=== PATIENT | female | born 1980 | race Caucasian/White ===

== ENCOUNTER 2017-11-28 16:29 | Emergency (ER) | payer OTHER ==
[2017-11-28] MEDS ORDERED: Sodium Chloride 0.9% 1000 ML 1,000 ML IV STA ×2 (17:44→19:04)
[2017-11-28] MEDS ORDERED: Zofran 4 MG/2 ML VIAL IV ONE (17:45)
--- NOTE | 2017-11-28 17:55 | ERPHSYRPT ---
- History of Present Illness Time Seen by Provider: 11/28/17 17:30 Source: patient Patient Subjective Stated Complaint: PT REPORTS VOMITING TODAY ET YESTERDAY- STATES THAT SHE IS 7 WKS PREGANT ET IT IS NOT NORMAL FOR HER TO VOMIT-STATES THAT SHE HAD A MISCARRIAGE LAST YEAR Triage Nursing Assessment: PT UPSET YELLING CUSSING ET SCREAMING UPON ARRIVAL TO ED ROOM-AMBULATORY WITH NO DIFFICULTY-RESP EASY ET NONLABORED Physician History: PATIENT IS A -5, PARA-2, -2. 7 WEEKS GESTATION, HAD ULTRASOUND 2 WEEKS AGO AT [facility] IN [place] WITH 5 WEEKS GESTATION. HAS FREQUENT EMESIS DAILY FOR PAST 8 HOURS. DENIES DAIRRHEA, VAGINAL BLEEDING. Timing/Duration: today Severity: moderate Modifying Factors: Improves With: nothing Associated Symptoms: nausea, vomiting Allergies/Adverse Reactions: Penicillins Allergy (Intermediate, Verified 11/28/17 17:13) Home Medications: Alprazolam [Xanax 0.5 mg] 0.5 mg PO BID 02/08/16 [History] Hx Tetanus, Diphtheria Vaccination/Date Given: Yes Hx Influenza Vaccination/Date Given: No Hx Pneumococcal Vaccination/Date Given: No Immunizations Up to Date: Yes - Review of Systems Constitutional: No Fever, No Chills Eyes: No Symptoms Ears, Nose, & Throat: No Symptoms Respiratory: No Symptoms, No Cough, No Dyspnea Cardiac: No Symptoms, No Chest Pain, No Edema, No Syncope Abdominal/Gastrointestinal: Nausea, Vomiting, No Abdominal Pain, No Diarrhea Genitourinary Symptoms: No Dysuria Musculoskeletal: No Symptoms, No Back Pain, No Neck Pain Skin: No Rash Neurological: No Dizziness, No Focal Weakness, No Sensory Changes Psychological: No Symptoms Endocrine: No Symptoms All Other Systems: Reviewed and Negative - Past Medical History Pertinent Past Medical History: Yes Musculoskeletal History: Arthritis Psycho-Social History: Anxiety, Depression - Past Surgical History Past Surgical History: No - Social History Smoking Status: Current every day smoker How long have you smoked: YRS Exposure to second hand smoke: Yes Drug Use: none Patient Lives Alone: No - Female History Hx Last Menstrual Period: SEP 15 Hx Now: Yes - Nursing Vital Signs Nursing Vital Signs: Initial Vital Signs Temperature 98.5 F 11/28/17 17:13 Pulse Rate 90 11/28/17 17:13 Respiratory Rate 20 02/07/18 17:13 Blood Pressure 116/71 02/07/18 17:13 O2 Sat by Pulse Oximetry 99 11/28/17 17:13 Pain Scale Pain Intensity 7 - Physical Exam General Appearance: no apparent distress, alert Eye Exam: PERRL/EOMI, eyes nml inspection Ears, Nose, Throat Exam: normal ENT inspection, TMs normal, pharynx normal, moist mucous membranes Neck Exam: normal inspection, non-tender, supple, full range of motion Respiratory Exam: normal breath sounds, lungs clear, No respiratory distress Cardiovascular Exam: regular rate/rhythm, normal heart sounds, normal peripheral pulses Gastrointestinal/Abdomen Exam: soft, normal bowel sounds, other (NONTENDER), No tenderness, No mass Back Exam: normal inspection, normal range of motion, No CVA tenderness, No vertebral tenderness Extremity Exam: normal inspection, normal range of motion, pelvis stable Neurologic Exam: alert, oriented x 3, cooperative, normal mood/affect, nml cerebellar function, nml station & gait, sensation nml, No motor deficits Skin Exam: normal color, warm, dry, No rash Lymphatic Exam: No adenopathy SpO2 Interpretation: normal SpO2: 99 Oxygen Delivery: Room Air Ordered Tests: Active Orders 24 hr Category Date Time Status Orthostatic Vital Signs STAT Care 11/28/17 17:47 Active BMP Stat Lab 11/28/17 18:05 Completed CBC W DIFF Stat Lab 11/28/17 18:05 Completed HCG, Quantitative (Inhouse) Stat Lab 11/28/17 18:05 Completed UA W/RFX UR CULTURE Stat Lab 11/28/17 17:44 Ordered Urine Triage Profile Stat Lab 11/28/17 17:44 Ordered Medication Summary Generic Name Dose Route Start Last Admin Trade Name Freq PRN Reason Stop Dose Admin Sodium Chloride 1,000 mls @ 999 mls/hr 11/28/17 19:04 11/28/17 19:20 Sodium Chloride 0.9% 1000 Ml IV 11/28/17 20:04 999 mls/hr .Q1H1M STA Administration Discontinued Medications Generic Name Dose Route Start Last Admin Trade Name Freq PRN Reason Stop Dose Admin Sodium Chloride 1,000 mls @ 999 mls/hr 11/28/17 17:44 11/28/17 18:25 Sodium Chloride 0.9% 1000 Ml IV 11/28/17 18:44 999 mls/hr .Q1H1M STA Administration Sodium Chloride Confirm 11/28/17 18:12 Sodium Chloride 0.9% 1000 Ml Administered 11/28/17 18:13 Dose 1,000 mls @ ud .ROUTE .STK-MED ONE Sodium Chloride Confirm 11/28/17 19:11 Sodium Chloride 0.9% 1000 Ml Administered 11/28/17 19:12 Dose 1,000 mls @ ud .ROUTE .STK-MED ONE Ondansetron HCl 4 mg 11/28/17 17:45 11/28/17 18:25 Zofran 4 Mg/2 Ml Vial IV 11/28/17 17:46 4 mg STAT ONE Administration Ondansetron HCl Confirm 11/28/17 18:11 Zofran 4 Mg/2 Ml Vial Administered 11/28/17 18:12 Dose 4 mg .ROUTE .STK-MED ONE Lab/Rad Data: Laboratory Result Diagrams 11/28/17 18:05 11/28/17 18:05 Laboratory Results 11/28/17 11/28/17 11/28/17 Range/Units 18:05 18:05 18:05 WBC 13.2 H (4.0-10.5) K/mm3 RBC 4.40 (4.1-5.4) M/mm3 Hgb 13.9 (12.0-16.0) gm/dl Hct 42.2 (35-47) % MCV 95.9 (78-100) fl MCH 31.6 (26-32) pg MCHC 32.9 (32-36) g/dl RDW 13.5 (11.5-14.0) % Plt Count 274 (150-450) K/mm3 MPV 9.2 (6-9.5) fl Gran % 78.2 H (36.0-66.0) % Lymphocytes % 14.3 L (24.0-44.0) % Monocytes % 7.0 (0.0-12.0) % Eosinophils % 0.3 (0.00-5.0) % Basophils % 0.2 (0.0-0.4) % Basophils # 0.02 (0-0.4) Sodium 137 (136-145) mEq/L Potassium 4.1 (3.5-5.1) mEq/L Chloride 100 (98-107) mEq/L Carbon Dioxide 23.2 (21-32) mEq/L Anion Gap 17.5 H (5-15) MEQ/L BUN 8 L (9-20) mg/dL Creatinine 0.66 (0.55-1.30) mg/dl Estimated GFR > 60 ML/MIN Glucose 81 (70-110) MG/DL Calcium 9.6 (8.5-10.1) mg/dL Beta HCG, Quant 23483 H (0-6) IU/L - Progress Progress: improved Progress Note: 11/28/17 20:06 IV HYDRATION 2LITERS OVER 3 HOURS ZOFRAN 4MG IV Counseled pt/family regarding: lab results, diagnosis, need for follow-up - Departure Time of Disposition: 20:10 Departure Disposition: Home Clinical Impression: Hyperemesis gravidarum, Condition: Stable Critical Care Time: No Referrals: GERMAN IRWIN [Primary Care Provider] - Additional Instructions: ZOFRAN 4MG EVERY 4 HOURS NEEDED FOR NAUSEA OR VOMITING. IF VOMITING NOT CONTROLLED BEGIN PHENERGAN SUPPOSITORY 25MG EVERY 4-6 HOURS. BEGIN A CLEAR LIQUID DIET FOR 24 HOURS AND ADVANCE TOLERATED, FULL LIQUID DIET DAY #2 INCLUDING SOUPS, CHEESES, CRACKERS AND TOAST. ADVANCE TO REGULAR DIET DAY #3. CONSULT YOUR PRIMARY CARE PROVIDER FOR FOLLOWUP. Prescriptions: Promethazine HCl 25 mg Supp [Phenergan 25 mg Supp] 25 mg AR Q4H PRN PRN 4 Days #10 supp.rect PRN Reason: Nausea Ondansetron ODT 4 MG [Zofran Odt 4 mg] 4 mg PO STAT PRN 4 Days #8 tab.rapdis PRN Reason: Nausea
[2017-11-28] MEDS ORDERED: Zofran 4 MG/2 ML VIAL ONE (18:11)
[2017-11-28] MEDS ORDERED: Sodium Chloride 0.9% 1000 ML 1,000 ML ONE ×2 (18:12→19:11)
[2017-11-28 18:13] LABS: BASOPHIL % 0.2 % (0.0-0.4); Basophil (Absolute #) 0.02 (0-0.4); Eosinophil % 0.3 % (0.00-5.0); Eosinophil (Absolute #) 0.04 (0-0.5); Granulocyte Absolute (ANC) 10.36 (1.4-6.9); Granulocytes % 78.2 % (36.0-66.0); Hematocrit 42.2 % (35-47); Hemoglobin 13.9 gm/dl (12.0-16.0); Lymphocyte (Absolute #) 1.89 (1.0-4.6); Lymphocytes % 14.3 % (24.0-44.0); Mean Cell Volume 95.9 fl (78-100); Mean Corpuscular Hemoglobin 31.6 pg (26-32); Mean Corpuscular Hgb Concent. 32.9 g/dl (32-36); Mean Platelet Volume 9.2 fl (6-9.5); Monocyte (Absolute #) 0.93 (0.0-1.3); Platelet Count 274 K/mm3 (150-450); Red Cell Distribution Width 13.5 % (11.5-14.0); White Blood Count 13.2 K/mm3 (4.0-10.5)
[2017-11-28 18:36] LABS: ANION GAP 17.5 MEQ/L (5-15); BLOOD UREA NITROGEN 8 mg/dL (9-20); CHLORIDE 100 mEq/L (98-107); Calcium 9.6 mg/dL (8.5-10.1); Carbon Dioxide 23.2 mEq/L (21-32); Creatinine 1 0.66 mg/dl (0.55-1.30); EST GLOMERULAR FILTRATION RATE > 60 ML/MIN; Glucose 81 MG/DL (70-110); Potassium 4.1 mEq/L (3.5-5.1); SODIUM 137 mEq/L (136-145)
[2017-11-28 19:23] VITALS: BP 110/55; PULSE 64
[2017-11-28 20:07] VITALS: O2SAT 99
[2017-11-28] MEDS ORDERED: ZOFRAN ODT 4 MG PO ONE (20:14)
[2017-11-28] MEDS ORDERED: ZOFRAN ODT 4 MG ONE (20:23)
== END 2017-11-28 20:30 | disposition home or self-care (01) ==
LOC: ED 16:29
DX: O21.0 Mild hyperemesis gravidarum (principal); Z3A.01 Less than 8 weeks gestation of pregnancy; M19.90 Unspecified osteoarthritis, unspecified site; Z72.0 Tobacco use
CPT/HCPCS: 36415; 80048; 84702; 85025; 96360; 96361; 99284; J2405; Q0162